=== PATIENT | female | born 1995 | race African-American/Black ===

== ENCOUNTER → 2016-07-02 | Outpatient (REF) | payer OTHER | LOC: M LAB REF 12:51 | PROVIDERS: ATTEND Specialist | DX: Z34.81 Encounter for supervision of other normal pregnancy, first trimester (principal) ==

== ENCOUNTER → 2016-09-24 | Outpatient (CLI) | payer OTHER | LOC: M SMT 08:26 | PROVIDERS: ATTEND Obstetrics & Gynecology | DX: N91.2 Amenorrhea, unspecified (principal) ==

== ENCOUNTER → 2016-09-26 | Outpatient (CLI) | payer OTHER | LOC: M SMT 08:03 | PROVIDERS: ATTEND Obstetrics & Gynecology | DX: N91.2 Amenorrhea, unspecified (principal) ==

== ENCOUNTER → 2016-11-20 | Outpatient (CLI) | payer OTHER ==
[2016-11-20 14:03] LABS: BASO % 0.2 % (0.0-1.0); EOS # 0.1 K/mm3 (0.0-0.50); EOS % 1.5 % (0.0-3.0); LARGE UNSTAINED CELL # 0.1 K/mm3 (0.0-0.4); LARGE UNSTAINED CELL % 1.1 % (0.0-4.0); LYMPH % 28.2 % (24.0-44.0); MEAN CORPUSCULAR HEMOGLOBIN 30.5 pg (27.0-33.0); MEAN CORPUSCULAR HGB CONC 31.9 g/dl (32.0-36.5); MEAN CORPUSCULAR VOLUME 95.9 fl (80.0-96.0); MONO # 0.3 K/mm3 (0.0-0.8); NEUTROPHILS # 4.6 K/mm3 (1.8-7.7); PLATELET COUNT, AUTOMATED 250 k/mm3 (150-450); RED CELL DISTRIBUTION WIDTH 14.9 % (11.5-14.5); WHITE BLOOD COUNT 7.1 K/mm3 (4.0-10.0)
[2016-11-21 10:53] LABS: HBsAg Prenatal NEGATIVE (NEGATIVE)
== END ==
LOC: M SMT 08:43
PROVIDERS: ATTEND Obstetrics & Gynecology
DX: Z34.81 Encounter for supervision of other normal pregnancy, first trimester (principal); Z3A.00 Weeks of gestation of pregnancy not specified

== ENCOUNTER → 2017-01-07 | Outpatient (CLI) | payer OTHER ==
--- NOTE | 2017-01-07 09:58 | REP ---
OB sonography: History: Supervision of for anatomy. Findings: Scanning through the gravid uterus demonstrates a viable single intrauterine gestation in a cephalic lie. motion is observed and heart rate is recorded at 136 beats per minute. A posterior grade 0 placenta is seen without evidence of previa or abruption. Amniotic fluid is subjectively normal. Closed cervical length is 5.1 cm. No extrauterine abnormalities observed. No anomaly is seen. The following anatomic structures are identified and felt to be sonographically unremarkable: cranium, choroid plexus, cavum, cerebellum and posterior fossa, face and profile, lungs, four-chamber heart with left and right ventricular outflow tract views, diaphragm, left-sided stomach, abdominal wall cord insertion, three-vessel umbilical cord, kidneys and bladder, spine, upper and lower extremities. Biometry chart: BPD 4.3 cm = 19 weeks 0 days Head circumference 15.7 cm = 18 weeks 4 days Abdominal circumference 12.0 cm = 17 weeks 5 days Femur length 2.8 cm = 18 weeks 5 days Humeral length 2.7 cm = 18 weeks 5 days Cerebellar diameter 1.9 cm = 18 weeks 4 days HC/AC ratio 1.31 (1.06-1.25). Cephalic index normal 0.76. Estimated weight 231, grams 0 pounds 8 ounces, 21st percentile for 19 weeks 0 days. Impression: Viable single intrauterine gestation at 18 weeks 3 days by today's composite sonographic criteria. ARI by today's sonography is June 07, 2017. Signed by Gene Lopez MD 01/07/2017 11:03 A
== END ==
LOC: M RAD 07:20
PROVIDERS: ATTEND Nurse Practitioner Women's Health
DX: Z36 Encounter for antenatal screening of mother (principal); Z3A.18 18 weeks gestation of pregnancy

== ENCOUNTER 2017-10-30 07:00 | Emergency (ER) | payer OTHER | END 2017-10-30 09:01 | disposition home or self-care (01) | LOC: M ED 07:00 | DX: M94.0 Chondrocostal junction syndrome [Tietze] (principal) | CPT/HCPCS: 71046 ==